=== PATIENT | male | born 1955 | race Caucasian/White ===

== ENCOUNTER 2022-12-12 07:09 | Day surgery (SDC) | payer OTHER ==
[2022-12-10 14:59] LABS: ALBUMIN 2.5 g/dL (3.5-5.0); CREATININE 2.2 mg/dL (0.5-1.5); POTASSIUM 4.6 mmol/L (3.5-5.1); TOTAL PROTEIN, SERUM 8.3 g/dL (6.0-8.3)
[~2022-12-12] VITALS: Ht 177.8 cm; Wt 93.4 kg
[~2022-12-12 07:09] MED LIST: ATOR40TA69 PO; FISH1CAP50 PO; FLUO20TA29 PO; FURO-152 PO; INSU100C6 SQ; OMEP20CA12 PO; PREG75CA75 PO; RANO500T2 PO; SACU1TAB PO; ecotrin PO
[2022-12-12 07:30] VITALS: BP 151/80
[2022-12-12] MEDS ORDERED: PROPOFOL 10 MG/ML 20ML VIAL IV ONE (10:56)
== END 2022-12-12 11:55 | disposition home or self-care (01) ==
LOC: ENDO 07:09 → DAH 07:09 → ENDO 07:10
PROVIDERS: ATTEND Internal Medicine Gastroenterology
DX: D50.9 Iron deficiency anemia, unspecified (principal); Z20.822 Contact with and (suspected) exposure to COVID-19; K63.5 Polyp of colon; K64.8 Other hemorrhoids; E11.9 Type 2 diabetes mellitus without complications; K74.01 Hepatic fibrosis, early fibrosis; I10 Essential (primary) hypertension; I25.10 Atherosclerotic heart disease of native coronary artery without angina pectoris; E78.5 Hyperlipidemia, unspecified; K80.50 Calculus of bile duct without cholangitis or cholecystitis without obstruction; E66.9 Obesity, unspecified; Z98.890 Other specified postprocedural states; Z95.1 Presence of aortocoronary bypass graft; Z90.49 Acquired absence of other specified parts of digestive tract; Z98.84 Bariatric surgery status; Z88.8 Allergy status to other drugs, medicaments and biological substances; Z95.5 Presence of coronary angioplasty implant and graft; Z98.0 Intestinal bypass and anastomosis status; Z79.4 Long term (current) use of insulin; Z79.82 Long term (current) use of aspirin; Z79.899 Other long term (current) drug therapy; Z68.29 Body mass index [BMI] 29.0-29.9, adult
CPT/HCPCS: 80053; 87426; 36415; 82948; 43239; 45380; J2704; A4620; A4215 ×2; A4223; A7002; A4222; A4221; A4663; J7030; A4606

== ENCOUNTER → 2023-08-21 | Outpatient (CLI) | payer OTHER ==
[~2023-08-21] MED LIST changes: +CHOL100040 PO; -PREG75CA75 PO; +PREG75CA76 PO; +VITA1CAP85 PO
== END | disposition home or self-care (01) ==
LOC: RAH 09:50
PROVIDERS: ATTEND Internal Medicine Gastroenterology
DX: K21.9 Gastro-esophageal reflux disease without esophagitis (principal); R13.10 Dysphagia, unspecified; K29.30 Chronic superficial gastritis without bleeding; K44.0 Diaphragmatic hernia with obstruction, without gangrene; K44.9 Diaphragmatic hernia without obstruction or gangrene; Z98.84 Bariatric surgery status
CPT/HCPCS: 74240

== ENCOUNTER 2023-10-07 07:20 | Day surgery (SDC) | payer OTHER ==
[~2023-10-07] VITALS: Ht 177.8 cm; Wt 97.1 kg
[2023-10-07 07:25] VITALS: BP 145/78; PULSE 67; RESP 16
[2023-10-07] MEDS ORDERED: [UNRECOGNIZED DRUG - OTHER] (07:37)
[2023-10-07] MEDS ORDERED: EMPA25TA PO (07:37)
[2023-10-07] MEDS ORDERED: SACU1TAB7 PO (07:37)
[2023-10-07] MEDS ORDERED: ASPI-1197 PO (07:37)
[2023-10-07] MEDS ORDERED: APIX5TAB PO (07:37)
[2023-10-07] MEDS: 0.9%NACL 1000ML 1,000 ML IV ONE (07:41)
[2023-10-07] MEDS ORDERED: FENTANYL CITRATE PF 50 MCG/1 ML 2ML VIAL ONE (07:57)
[2023-10-07] MEDS ORDERED: LIDOCAINE PF 100MG/5ML (2%) SYRINGE 5ML ONE (07:57)
[2023-10-07] MEDS ORDERED: PROPOFOL 10 MG/ML 20ML VIAL IV ONE (07:57)
[2023-10-07] MEDS ORDERED: SODIUM TETRADECYL SULFATE 30 MG/ML 2 ML VIAL IV ONE (08:00)
== END 2023-10-07 08:52 | disposition home or self-care (01) ==
LOC: ENDO 07:20 → DAH 07:20 → ENDO 08:52
PROVIDERS: ATTEND Surgery
DX: K21.9 Gastro-esophageal reflux disease without esophagitis (principal); E11.22 Type 2 diabetes mellitus with diabetic chronic kidney disease; N18.30 Chronic kidney disease, stage 3 unspecified; I50.9 Heart failure, unspecified; Z79.899 Other long term (current) drug therapy; Z98.84 Bariatric surgery status; Z98.890 Other specified postprocedural states; Z90.49 Acquired absence of other specified parts of digestive tract; Z95.0 Presence of cardiac pacemaker; Z95.5 Presence of coronary angioplasty implant and graft; Z86.73 Personal history of transient ischemic attack (TIA), and cerebral infarction without residual deficits; Z79.01 Long term (current) use of anticoagulants; Z79.4 Long term (current) use of insulin
CPT/HCPCS: 43236; 82948; J3010; J7030; J2001; J2704; J3490; A4620; A4215 ×2; A4223; A4657; A4222; A4221; A4663; A4216; A4606; 43253